=== PATIENT | female | born 1970 | race Caucasian/White ===

== ENCOUNTER 2023-05-30 18:52 | Emergency (ER) | payer BC, SELFPAY ==
[2023-05-30 19:08] VITALS: BP 154/88; PULSE 70; RESP 16; TEMP 36.6; O2SAT 98
--- NOTE | 2023-05-30 19:09 | ED.LOWEXIN ---
HPI - Extremity Injury (Lower) General Chief Complaint: Extremity Injury, Lower Stated Complaint: pain in left leg Time Seen by Provider: 05/30/23 19:10 Source: patient and RN notes reviewed Mode of arrival: ambulatory Limitations: no limitations History of Present Illness HPI Narrative: 52-year-old female presents with concern for left groin pain. She denies any direct injury or trauma. Reports pain started the day after she had to difficulty workouts. She reports no pain when she is sitting or lying. She reports pain when she is standing. Reports pain is mildly better when walking. Reports that worsens when going up and down the stairs. She reports she tried ibuprofen with little relief complaint: hip injury Related Data Home Medications Medication Instructions Recorded Confirmed atenolol 50 mg tablet 100 mg PO DAILY 05/30/23 05/30/23 omeprazole 20 mg capsule,delayed 20 mg PO DAILY 05/30/23 05/30/23 release Allergies Allergy/AdvReac Type Severity Reaction Status Date / Time No Known Allergies Allergy Verified 05/30/23 19:10 Review of Systems Review of Systems: CONSTITUTIONAL: Denies malaise, chills, sweats, or fever. SKIN: Denies rash or itching, open skin, laceration, abrasion, redness, warmth, swelling. MUSCULOSKELETAL: Reports left groin pain NEUROLOGIC: Denies numbness, weakness All systems reviewed & are unremarkable except as noted in HPI and below PMFSH Comments At time of signature, agree with nursing past medical, surgical, social and family history. There is no relevant family history pertinent to the presenting complaint Exam Narrative: GENERAL: Well-appearing, well-nourished, and in no acute distress. HEAD: Normocephalic, atraumatic. EYES: PERRLA, conjunctivae clear NECK: Supple. CHEST: Speaks in full sentences. No respiratory distress. HEART: Regular rate and rhythm. Normal and equal peripheral pulses. EXTREMITIES: Left lower extremity has grossly normal strength and sensation, normal range of motion. No edema or ecchymosis. Normal sensation with sensitivity to light touch and pain. No point tenderness. No open wounds, no skin tenting, no devitalized tissue or atrophy, no trophic changes, no obvious deformity, alignment normal, nearby joints and structures intact. Distal pulses palpable and equal bilaterally, skin warm, dry, pink. Capillary refill less than 3 seconds. SKIN: Warm, dry, no rash. NEURO: Alert and oriented x3. PSYCH: Normal mood and affect Course Course Emergency Course: Patient is aware of diagnosis, understands and agrees to treatment plan. Anticipatory guidance given. Patient agrees to follow-up as directed and is aware of reasons to seek care at the emergency department. Portions of this record may have been created with voice recognition software Level of Care: Express Care Visit Vital Signs Vital signs: Reviewed. MDM - Extremity Injury (Lower) MDM Narrative Medical decision making narrative: Patients injury and pain is consistent with musculoskeletal etiology. No signs of neurological or vascular compromise on exam. Compartments and tissues are soft without signs of compartment syndrome. Pain is felt appropriate for further evaluation on an outpatient basis. Critical Care Time Critical Care Time Critical Care Time: No Discharge Plan Discharge Clinical Impression: Strain of left groin Patient Disposition: Home, Self-Care Condition: Stable Instructions: Groin Strain (ED) Additional Instructions: Please follow up with your Primary Care Doctor within 48-72 hours - call for an appointment. Activity as tolerated. Take prednisone as directed, take muscle relaxers every 8 hours as needed for muscle spasm- do not drive or make any important decisions while on this medication for it can make you drowsy. You may apply ice to the area as needed. If you experience any worsening pain, swelling, numbness, weakness please go to ER. Nicole
== END 2023-05-30 19:16 | disposition home or self-care (01) ==
PROVIDERS: Emergency Provider Nurse Practitioner; PCP Family Medicine
DX: S39.011A Strain of muscle, fascia and tendon of abdomen, initial encounter (principal); Z79.899 Other long term (current) drug therapy; X58.XXXA Exposure to other specified factors, initial encounter
CPT/HCPCS: 99203; G0463

== ENCOUNTER 2025-01-13 01:22 | Day surgery (SDC) | payer BC, SELFPAY ==
[2025-01-03 13:44] VITALS: BMI 37.2
--- OUTSIDE RECORDS SUMMARY | 2025-01-13 01:24 | XMS_ITS | Referral Summary ---
Author Organization [facility] at [facility] Address [address] [place] [address] Care Team Providers Care V Belt Curer Name Role Phone Gordy Mei MD Primary Care Provider [phone] Ace Haider MD Unavailable [phone] Allergies No known active allergies Medications atenolol (TENORMIN) 50 mg tablet 9 Active citalopram (CeleXA) 20 mg tablet 9 Active multivitamin capsule Rx: Multivitamins - Capsule Active Active Problems No known active problems Social History Tobacco Use Types Packs/Day Years Used Date Smoking Tobacco: Never Alcohol Use Standard Drinks/Week Comments Not Currently 0 (1 standard drink = 0.6 oz pur e alcohol) AUDIT-C Answer Date Recorded Q1: How often do you have a drink containing alc ohol? 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 Gender Identity Not on file Sexual Orientation Not on file Last Filed Vital Signs Vital Sign Reading Time Taken Comments Blood Pressure 114/76 05/24/2024 3:28 PM CDT Pulse 0 04/26/2016 2:30 PM CDT Temperature - - Respiratory Rate - - Oxygen Saturation - - Inhaled Oxygen Concentration - - Weight 101.2 kg (223 lb) 05/24/2024 3:28 PM CDT Height 167.6 cm (5' 5.98 ) 05/24/2024 3:28 PM CD T Body Mass Index 36.01 05/24/2024 3:28 PM CDT Plan of Treatment Not on file Procedures Procedure Name Priority Date/Time Associated Diagnosis Comments HIGH RISK HPV DNA DETECTION WITH GENOTYPING Routine 05/24/2024 3:27 PM CDT Well woman exam SCREENING MAMMOGRAM BILATERAL W SONIA Schedule Routine, Read Routine (OP Routine) 04/02/2024 3:19 PM CDT Encounter for screening mammogram for malignant neoplasm of breast from Last 3 Months or Most Recently Relevant to Health Maintenance Results * High Risk HPV DNA Detection with Genotyping (Molecular component) (05/24/2024 3:27 PM CDT) HPV HR 16 Not Detected Not Detected [facility] Comment:Testing performed by : [facility], [address] [place]., [address] HPV HR 18 Not Detected Not Detected [facility] Comment:Testing performed by : [facility], [address] [place]., [address] HPV HR Non 16/18 Not Detected Not Detected [facility] Comment: Interpretive Data Nucleic acid amplification for detection of high-risk Human Papilloma virus (HPV) is performed by the Rene Cole 6800 HPV test. This assay specifically detects HPV-16 and HPV-18 genotypes. The following HPV genotypes are detected as high-risk HPV: HPV-31, 33, 35, ,39, 45, 51, 52, 56, 58, 59, 66, and 68. This assay has been approved by the [place] Food and Drug Administration for detection of HPV in cervical specimens collected by a physician using an endocervical brush/spatula or cervical broom and placed in the ThinPrep Pap Test PreservCyt collection containers. The performance characteristics of this test have been verified by the [facility] Molecular Infectious Disease laboratory. Correlate with separately reported cytology results, as applicable. Interpretive data last revised 23 Testing performed by: [facility], [address] [facility], [place]., [address] Endocervical 05/24/2024 3:27 PM CDT 05/24/2024 9:33 PM CDT Narrative [facility] - 05/25/2024 7:16 PM CDT Clinical history and diagnosis->screen Testing type->Screening Last menstrual period (date if known)->pm Ace Haider MD LAB BODY FLUIDS AND STO OLS ORDERABLES Final Result [facility] [address] [facility] Department [place] [address] [facility] * Screening Mammogram Bilateral W Sonia (04/02/2024 3:19 PM CDT) Anatomical Region Laterality Modality Breast Bilateral Mammography Impressions 04/02/2024 3:50 PM CDT BI-RADS ATLAS category (overall): 2 - Benign There is no mammographic evidence of malignancy. A 1 year screening mammogram is recommended. The patient has been or will be contacted. We recommend annual screening mammography for women at average risk of breast cancer beginning at age 40, based on guidelines of the [place] [employer] (ACR Practice Parameter for the Performance of Screening and Diagnostic Mammography) and [place] [employer]. For women with and elevated risk of breast cancer, please refer to the ACR Practice Parameter for specific screening recommendations. The patient will be entered into a reminder system with a target due date of 1 year for her next screening exam. Narrative 04/02/2024 3:50 PM CDT Screening Mammogram Bilateral W Sonia: 04/02/24 The study was acquired using full field digital technology and interpreted from soft copy. 2D digital mammographic views, as well as 3D digital tomosynthesis were performed in the CC and MLO projections. CLINICAL: Encounter for screening mammogram for malignant neoplasm of breast. No relevant medical history has been documented for this patient. History of breast cancer in Neg Hx. COMPARISONS: 03/31/2023 Screening Mammogram Bilateral W Sonia 03/29/2022 Screening Mammogram Bilateral W Sonia BREAST TISSUE: The breasts are almost entirely fatty. FINDINGS: Unchanged intramammary lymph node in the right breast. There is no new suspicious finding in either breast on mammogram. Ace Haider MD IMG MAMMO PROCEDURES Fi nal Result from Last 3 Months or Most Recently Relevant to Health Maintenance Insurance [employer] [facility] FEDERAL Care Teams V Belt Curer Relationship Specialty Start Date End Date Gordy Mei MD [address] [address] PCP - General Family Medicine 03/29/22 Ace Haider MD [address] [facility] [facility] [address] [place] [address] [place] [id number] Consulting Physician Obstetrics and Gynecology 03/29/22
--- OUTSIDE RECORDS SUMMARY | 2025-01-13 01:24 | XMS_ITS | Clinical Summary ---
Author Organization [facility] at [facility] Address [address] [place] [address] Care Team Providers Care Slot Machine Mechanic Name Role Phone Gordy Mei MD Primary Care Provider [phone] Ace Haider MD Unavailable [phone] Allergies No known active allergies Medications atenolol (TENORMIN) 50 mg tablet 9 Active citalopram (CeleXA) 20 mg tablet 9 Active multivitamin capsule Rx: Multivitamins - Capsule Active Active Problems No known active problems Surgical History Surgery Date Site/Laterality Comments SECTION CHOLECYSTECTOMY GYNECOLOGIC CRYOSURGERY Medical History Medical History Date Comments HTN (hypertension) Anxiety and depression HPV exposure 2020 HPV positive on pap Family History Medical History Relation Name Comments Diabetes, HTN Other Breast cancer Neg Hx Ovarian cancer Neg Hx Relation Name Status Comments Other Social History Tobacco Use Types Packs/Day Years [...] on file 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 Gender Identity Not on file Sexual Orientation Not on file Obstetrics History Para Term AB IAB SAB Ectopic Multiple Livin g Live Births 2 1 1 Date Outcome GA Total Labor Labor/2nd/3rd Weight Sex Type Anes PTL Fadia A1 A5 Name Clin Term Comments /unsure age of trisha - w as on OCP Last Filed Vital Signs Vital Sign Reading [...] 05/24/2024 3:28 PM CDT Plan of Treatment Health Maintenance Due Date Last Done Comments Colon Cancer Screening-Colonoscopy 1969 Depression Screening 1969 Hepatitis C Screening 1969 DTaP/Tdap/Td Vaccine (1 - Tdap) 1980 Hepatitis B Screening 1987 Zoster Vaccine (1 of 2) 2019 Influenza Vaccine (#1) 2024 07/27/2019 Breast Cancer Screening-Mammogram 04/02/2025 04/02/2024, 03/31/2023, 03/29/2022, Additional history exists Cervical Cancer Screening 05/24/20252023, 05/24/2024, 05/09/2021, Additional history exists Regular Well Visit/Exam 18-64 05/24/2025 05/24/2024, 05/14/2023, 05/13/2022, Additional history exists Pneumococcal vaccine <65 Aged Out No longer eligible based on patient's age to complete this topic Procedures Procedure Name Priority Date/Time Associated Diagnosis Comments HIGH RISK HPV DNA DETECTION WITH GENOTYPING Routine 05/24/2024 3:27 PM CDT Well woman exam SCREENING MAMMOGRAM BILATERAL W SOINA Schedule Routine, Read Routine (OP Routine) 04/02/2024 3:19 PM CDT Encounter for screening mammogram for malignant neoplasm of breast from Last 3 Months or Most Recently Relevant to Health Maintenance Results * High Risk HPV DNA Detection with Genotyping (Molecular component) (05/24/2024 3:27 PM CDT) HPV HR 16 Not Detected Not Detected [facility] Comment:Testing performed by : [facility], [address] [place]., [address] HPV HR 18 Not Detected Not Detected [facility] Comment:Testing performed by : [facility], [address] [place]., [address] HPV HR Non 16/18 Not Detected Not Detected [facility] Comment: Interpretive Data Nucleic acid amplification for [...] this test have been verified by the [facility] Molecular Infectious Disease laboratory. Correlate with separately reported cytology results, as applicable. Interpretive data last revised 23 Testing performed by: [facility], [address] [place]., [address] Endocervical 05/24/2024 3:27 PM CDT 05/24/2024 9:33 PM CDT Narrative [facility] - 05/25/2024 7:16 PM CDT Clinical history and diagnosis->screen Testing type->Screening Last menstrual period (date if known)->pm Ace Haider MD LAB BODY FLUIDS AND STO OLS ORDERABLES Final Result [facility] [address] [facility] Department [place] [address] [facility] * Screening Mammogram Bilateral W Sonia (04/02/2024 [...] age 40, based on guidelines of the [place] [employer] (ACR Practice Parameter for the Performance of Screening and Diagnostic Mammography) and [place] [employer]. For women [...] Most Recently Relevant to Health Maintenance Insurance [employer] [facility] FEDERAL Care Teams Slot Machine Mechanic Relationship Specialty Start Date End Date Gordy Mei MD [address] [address] PCP - General Family Medicine 03/29/22 Ace Haider MD [address] [place] [address] Consulting Physician Obstetrics and Gynecology 03/29/22
--- OUTSIDE RECORDS SUMMARY | 2025-01-13 01:24 | XMS_ITS | Encounter Summary ---
Author Organization [facility] Address [address] [place] [address] Care Team Providers Care Learning And Development Consultant Name Role Phone Gordy Mei MD Primary Care Provider [phone] Gordy Mei MD Unavailable [phone] Encounter Details Date Type Department Care Team (Late st Contact Info) Description 03/03/2020 Prep for Procedure [facility] [place], [place] [id number] Juanjo Araiza MD [address] [id number] Social History Tobacco Use Types Packs/Day Years Used Date Smoking Tobacco: Never Smokeless Tobacco: Never Alcohol Use Standard Drinks/Week Comments Yes 0 (1 standard drink = 0.6 oz pur e alcohol) socially Comments No Sex and Gender Information Value Date Recorded Sex Assigned at Not on file Legal Sex Female 8:30 PM CDT Gender Identity Not on file Sexual Orientation Not on file COVID-19 Exposure Response Date Recorded In the last month, have you been in contact with someone who was confirmed or suspected to have Coronavirus / COVID-19? No / Unsure 03/06/2020 7:37 AM CDT documented as of this encounter Plan of Treatment Not on file documented as of this encounter Results * PRE-SURGICAL/PRE-PROCEDURE CORONAVIRUS (COVID 19) (03/03/2020 11:50 AM CDT) CORONAVIRUS SARS COV 2 PCR (RESP) NOT DETECTED NOT DETECTED 03/04/2020 8:19 PM CDT [facility] Comment: A Not Detected (negative) test result for this test means that SARS- CoV-2 RNA was not present in the specimen above the limit of detection. A negative result does not rule out the possibility of COVID-19 and should not be used as the sole basis for treatment or patient management decisions. If COVID-19 is still suspected, based on exposure history together with other clinical findings, re-testing should be considered in consultation with public health authorities. Laboratory test results should always be considered in the context of clinical observations and epidemiological data in making a final diagnosis and patient management decisions. Please review the Fact Sheets and FDA authorized labeling available for health care providers and patients using the following websites: https://www.[employer]/home/Covid-19/HCP/Quest[facility]/fact- sheet.html https://www.[employer]/home/Covid-19/Patients/ [facility]/fact-sheet.html This test has been authorized by the FDA under an Emergency Use Authorization (EUA) for use by authorized laboratories. Due to the current public health emergency, [facility] is receiving a high volume of samples from a wide variety of swabs and media for COVID-19 testing. In order to serve patients during this public health crisis, samples from appropriate clinical sources are being tested. Negative test results derived from specimens received in non-commercially manufactured viral collection and transport media, or in media and sample collection kits not yet authorized by FDA for COVID-19 testing should be cautiously evaluated and the patient potentially subjected to extra precautions such as additional clinical monitoring, including collection of an additional specimen. Methodology: Nucleic Acid Amplification Test (NAAT) includes PCR or TMA Additional information about COVID-19 can be found at the [facility] website: www.[employer]/Covid19. Test performed at [facility] [address] [place] [address] Director: KEVEN BLACKBURN DO,MPH NASOPHARYNGEAL SWAB / Unknown 03/03/2020 11:50 AM CDT Juanjo Araiza MD MICROBIOLOGY - GENERAL ORDUsama PEDERSEN Final Result [facility] [address] [place] [address], documented in this encounter Visit Diagnoses Diagnosis Family history of colon cancer- Primary Family history of malignant neoplasm of gastrointestinal tract documented in this encounter Additional Health Concerns Infection Onset Date Last Indicated Resolved Time COVID-19 Rule Out 03/03/2020 03/03/2020 03/04/2020 8:19 PM CDT documented as of this encounter Care Teams Learning And Development Consultant Relationship Specialty Start Date End Date Gordy Mei MD [address] [facility] [address] [place] [address] PCP - General FAMILY PRACTICE 10/04/19 Gordy Mei MD [address] [facility] [address] [place] [address] 10/04/19 documented as of this encounter
--- OUTSIDE RECORDS SUMMARY | 2025-01-13 01:25 | XMS_ITS | Clinical Summary ---
Author Organization [facility] Address [facility] [place] [address] Care Team Providers Care Floor Worker Name Role Phone Gordy Mei MD Primary Care Provider [phone] Gordy Mei MD Unavailable [phone] Allergies No known active allergies Medications atenolol 50 MG tablet Take 50 mg by mouth daily. Active Norgestimate-E th Estradiol (SPRINTEC 28 OR) Active citalopram 20 MG tablet Take 20 mg by mouth daily. Active omeprazole 20 MG capsule Take 20 mg by mouth daily. Active Multiple Vitamin (MULTIVITAMIN) capsule Rx: Multivitamins - Capsule Active Active Problems No known active problems Family History Medical History Relation Comments Cancer Brother colon Relation Status Comments Brother Social History Tobacco Use Types Packs/Day Years [...] Sign Reading Time Taken Comments Blood Pressure 126/89 03/06/2020 10:13 AM CDT Pulse 63 03/06/2020 10:13 AM CDT Temperature 35.9 C (96.7 F) 03/06/2020 9:51 AM CDT Respiratory Rate 26 03/06/2020 10:13 AM CDT Oxygen Saturation 100% 03/06/2020 10:13 AM CDT Inhaled Oxygen Concentration - - Weight 120.2 kg (265 lb) 02/25/2020 2:18 PM CDT Height 167.6 cm (5' 6 ) 02/25/2020 2:18 PM CDT Body Mass Index 42.77 02/25/2020 2:18 PM CDT Plan of Treatment Health Maintenance Due Date Last Done Comments Annual Physical 1972 Hepatitis C 1987 DTaP, Tdap and Td Vaccines ( 1 - Tdap) 1988 Hepatitis B Vaccines (1 of 3 - 19+ 3-dose series) 1988 Cervical Cancer Screening Pa p with HPV Testing (Age 30 to 64) Every 5 Years 1999 Pneumococcal Vaccine: 50+ Years (1 of 1 - PCV) 2019 Zoster Vaccines (1 of 2) 2019 Cervical Cancer Screening Pa p Smear (Age 30 to 64) Every 3 Years 05/09/2024 05/09/2021 Cervical Cancer Screening wi th HPV 05/09/2024 COVID-19 Vaccine ( - 2023-2 5 season) 2024 Mammogram Screening 04/02/2026 04/02/2024 Colorectal Cancer Screening Colonoscopy (10 Years) 03/06/2030 03/06/2020, 03/06/2020 Meningococcal B Vaccine Aged Out No l onger eligible based on patient's age to complete this topic Meningococcal Vaccine Aged Out No freddy jadon eligible based on patient's age to complete this topic RSV Immunizations Under 20 Months Aged Out No longer eligible b ased on patient's age to complete this topic Procedures Procedure Name Priority Date/Time Associated Diagnosis Comments COLONOSCOPY Routine 03/06/2020 9:58 AM CDT from Last 3 Months or Most Recently Relevant to Health Maintenance Insurance [facility] Care Teams Floor Worker Relationship Specialty Start Date End Date Gordy Mei MD [address] [facility] [address] [place] [address] PCP - General FAMILY PRACTICE 10/04/19 Gordy Mei MD [address] [facility] [address] [place] [address] 10/04/19
[2025-01-13 06:16] VITALS: BP 142/79; PULSE 50; RESP 18; TEMP 36.3; O2SAT 99; BMI 36.6
[2025-01-13] MEDS: LACTATED RINGERS 1,000 ML 150 ML IV CONT (06:26)
--- NOTE | 2025-01-13 06:59 | WPDANESEPPF ---
Anes - Initial Pre Proc Eval Procedure: Operation Date: 01/13/25 07:30 Proposed Procedures p Screening Colonoscopy - Rakesh Call MD Date/Time: 01/13/25 06:59 Surgeon: Rakesh Call MD Pre Op Diagnosis: malignant neoplasm of colon Patient Data Age: 54 Gender: F Height: 1.68 m Weight: 102.9 kg Last Vital Signs Temp 97.3 F L 01/13/25 06:16 Pulse 50 L 01/13/25 06:16 Resp 18 01/13/25 06:16 BP 142/79 H 01/13/25 06:16 Pulse Ox 99 01/13/25 06:16 O2 Del Method Room Air 01/13/25 06:16 Allergies Allergy/AdvReac Type Severity Reaction Status Date / Time No Known Allergies Allergy Verified 01/13/25 06:15 Home Medications ?Medication ?Instructions ?Recorded ?Confirmed ?Type atenolol 50 mg tablet 100 mg PO DAILY 05/30/23 01/13/25 History cyclobenzaprine 10 mg tablet 10 mg PO TID PRN muscle spasm #20 05/30/23 01/13/25 Rx tabs omeprazole 20 mg capsule,delayed 20 mg PO DAILY 05/30/23 01/13/25 History release Patient hx anesthesia problems: post op nausea/vomiting Family hx anesthesia problems: none Results Review: All pre-operative results and documents have been reviewed as part of the pre-operative evaluation. [facility] Past Medical History Medical History PONV (postoperative nausea and vomiting) GERD (gastroesophageal reflux disease) Hypertension Social History Social History Smoking status: Never smoker Alcohol intake: never Substance use: never Substance use type: does not use Living arrangements: with family Spiritual care concerns: No Anes - Eval Final PreProcedure Day of Procedure 01/13/25 06:59 Patient weight: obese Lungs: normal air movement Airway: Mallampati scale class II Neurological: alert and oriented Last oral intake: >/= 8 hours ASA classification: II Emergent: no Anesthetic plan: proceed Anesthesia type and monitoring: general GIVS and standard monitoring Results Review: All pre-operative results and documents have been reviewed as part of the pre-operative evaluation. HTN, pt very active w gym workouts, cardio and wts, sometimes twice a day, no cp or sob. Informed Consent: The patient's anesthetic plan and its attendant risks and benefits were discussed with the patient/family/POA. Questions were solicited and answers provided to the satisfaction of the patient/family/POA.
--- NOTE | 2025-01-13 07:28 | PM.HPGS ---
History of Present Illness History of Present Illness Consent: Risks, benefits, and alternatives have been discussed and questions answered. Patient agrees to proceed with procedure. Chief complaint: malignant neoplasm of colon Narrative: Madina Ba is a 54 year old female with colon polyp 5 years ago Review of Systems Review of Systems: All systems reviewed & are unremarkable except as noted in HPI and below PMFSH Past Medical History Medical History (Updated 01/13/25 @ 07:30 by Rakesh Call MD) Colon polyp PONV (postoperative nausea and vomiting) GERD (gastroesophageal reflux disease) Hypertension Social History Social History Smoking status: Never smoker Alcohol intake: never Substance use: never Substance use type: does not use Living arrangements: with family Spiritual care concerns: No Meds Home Medications and Allergies Home Medications ?Medication ?Instructions ?Recorded ?Confirmed ?Type atenolol 50 mg tablet 100 mg PO DAILY 05/30/23 01/13/25 History cyclobenzaprine 10 mg tablet 10 mg PO TID PRN muscle spasm #20 05/30/23 01/13/25 Rx tabs omeprazole 20 mg capsule,delayed 20 mg PO DAILY 05/30/23 01/13/25 History release Allergies Allergy/AdvReac Type Severity Reaction Status Date / Time No Known Allergies Allergy Verified 01/13/25 06:15 Vital Signs Vital Signs - 24 hr 01/13/25 06:16 Temperature 97.3 F L Pulse Rate 50 L Respiratory Rate 18 Blood Pressure 142/79 H Pulse Oximetry 99 Oxygen Delivery Room Air Exam Const: General: comfortable and no acute distress HENMT: Face/Nose/Sinus: Normal nares present Eyes: General: appearance normal, both eyes and all related structures Neck: Neck: no JVD Resp: Auscultation: clear to auscultation bilaterally Cardio: Rate: regular rate Rhythm: regular rhythm GI: Inspection: non-distended GI Palp: Yes Soft to palpation Skin: General skin exam: normal color Neuro: General: gait normal Speech: normal speech Extrem: General: normal to inspection Psych: Mental Status: mental status grossly normal Assessment and Plan Assessment and plan (1) Colon polyp: Code(s): K63.5 - Polyp of colon Status: Acute Assessment and Plan: colonoscopy
[2025-01-13 07:44] VITALS: BP 114/57; PULSE 51; RESP 19; O2SAT 99
[2025-01-13 07:54] VITALS: BP 110/77; PULSE 57; RESP 23; O2SAT 100
[2025-01-13 08:04] VITALS: BP 116/70; PULSE 56; RESP 21; O2SAT 99
== END 2025-01-13 08:10 | disposition home or self-care (01) ==
PROVIDERS: PCP Family Medicine; Referring Provider Family Medicine; Visit Provider Internal Medicine Gastroenterology
PROC: 0DJD8ZZ Inspection of Lower Intestinal Tract, Via Natural or Artificial Opening Endoscopic (ICD-10-PCS; CPT 45378; principal; 2025-01-13 07:30)
DX: Z12.11 Encounter for screening for malignant neoplasm of colon (principal); K64.8 Other hemorrhoids; I10 Essential (primary) hypertension; K21.9 Gastro-esophageal reflux disease without esophagitis; E66.9 Obesity, unspecified; Z68.36 Body mass index [BMI] 36.0-36.9, adult; Z86.0100 Personal history of colon polyps, unspecified
CPT/HCPCS: 45378; J2003; J2704; J7120